=== PATIENT | male | born 1940 | race Caucasian/White ===

== ENCOUNTER 2017-11-24 22:35 | Emergency (ER) | payer OTHER ==
--- NOTE | 2017-11-24 22:53 | EDM.PDOC ---
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 This particular event was at a meeting normally functioning then sudden confusion did not know where he was did not know why he was at a meeting was confused with the group he was with developed a blank stare into space minimally responsive. 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) Social & Family History - Tobacco Use Smoking Status *Q: Former Smoker ED ROS GENERAL - Review of Systems Review Of Systems: See Below Constitutional: Reports: No Symptoms HEENT: Reports: No Symptoms Respiratory: Reports: No Symptoms Cardiovascular: Reports: No Symptoms GI/Abdominal: Reports: No Symptoms : Reports: No Symptoms Musculoskeletal: Reports: No Symptoms Skin: Reports: No Symptoms Neurological: Reports: Confusion ED EXAM, NEURO - Physical Exam Exam: See Below Text/Narrative:: General: Elderly male, GCS of 15, alert and oriented x3 HEENT: head is atraumatic normocephalic, eyes pupils equal round reactive to light, sclera clear no conjunctivitis appreciated extraocular eye movements intact. Ears tympanic membranes clear and hernandez landmarks and light reflex are present bilaterally canals are clear. Nose no septal deviation, nares are clear, no blood present. Mouth mucosa is moist and pink no erythema or exudate noted in soft palate, tongue is midline uvula is midline, dentition is intact. Neck: Supple no thyromegaly no tracheal deviation. Nodes: Cervical nodes subclavicular nodes nontender no palpable lymphadenopathy noted. Lungs: clear to auscultation bilaterally with symmetrical respirations, no adventitious noise appreciated. CV: IRR rate and rhythm S1 and S2 appreciated no murmurs rubs or gallops noted. Abdomen: Soft, nontender, no palpable masses or organomegaly appreciated, no distention no guarding bowel sounds are present, . Neuro: Cranial nerves II through XII grossly intact, power is 5 x 5 on the left side however power is slightly reduced on the right side this is not a new deficit, patellar reflex, can do finger to nose with a left hand and rapid alternating movements without difficulty on the left no dysdiadochokinesis no focal neurologic deficit Skin: Warm and dry, intact Extremities: No lower extremity edema appreciated, pedal pulse is +2. Course - Vital Signs Last Recorded V/S: Last Vital Signs Temp 97.4 F 11/24/17 23:05 Pulse 84 11/24/17 23:21 Resp 11 L 11/24/17 23:21 BP 117/83 11/24/17 23:21 Pulse Ox 98 11/24/17 23:21 - Orders/Labs/Meds Orders: Active Orders 24 hr Category Date Time Status EKG Documentation Completion [RC] ASDIRECTED Care 11/24/17 22:47 Active Head wo Cont [CT] Urgent Exams 11/24/17 22:47 Taken CULTURE URINE [RM] Urgent Lab 11/25/17 00:29 Ordered UA W/MICROSCOPIC [URIN] Urgent Lab 11/24/17 23:52 Ordered EKG 12 Lead [EK] Urgent Ther 11/24/17 22:47 Ordered Labs: Laboratory Tests 11/24/17 11/24/17 11/24/17 Range/Units 22:59 22:59 22:59 WBC 6.3 (4.5-11.0) K/uL RBC 3.72 L (4.30-5.90) M/uL Hgb 12.1 (12.0-15.0) g/dL Hct 37.2 L (40.0-54.0) % MCV 100 H (80-98) fL MCH 33 H (27-31) pg MCHC 33 (32-36) % Plt Count 253 (150-400) K/uL Neut % (Auto) 65 (36-66) % Lymph % (Auto) 23 L (24-44) % [place] % (Auto) 11 H (2-6) % Eos % (Auto) 1 L (2-4) % Baso % (Auto) 0 (0-1) % ESR 40 H (0-20) mm/hr PT 33.2 H (9.5-12.0) sec INR 2.97 H (0.80-1.20) Sodium 138 L (140-148) mmol/L Potassium 3.9 (3.6-5.2) mmol/L Chloride 103 (100-108) mmol/L Carbon Dioxide 25 (21-32) mmol/L Anion Gap 13.9 (5.0-14.0) mmol/L BUN 16 (7-18) mg/dL Creatinine 1.1 (0.8-1.3) mg/dL Est Cr Clr Drug Dosing 63.31 mL/min Estimated GFR (MDRD) > 60 (>60) Glucose 108 H (74-106) mg/dL Calcium 9.3 (8.5-10.1) mg/dL Total Bilirubin 0.6 (0.2-1.0) mg/dL AST 18 (15-37) U/L ALT 21 (12-78) U/L Alkaline Phosphatase 64 (46-116) U/L Total Protein 7.4 (6.4-8.2) g/dL Albumin 3.6 (3.4-5.0) g/dL Globulin 3.8 H (2.3-3.5) g/dL Albumin/Globulin Ratio 1.0 L (1.2-2.2) Urine Color Urine Appearance Urine pH (4.5-8.0) Ur Specific Avis (1.008-1.030) Urine Protein (NEGATIVE) mg/dL Urine Glucose (UA) (NEGATIVE) mg/dL Urine Ketones (NEGATIVE) mg/dL Urine Occult Blood (NEGATIVE) Urine Nitrite (NEGAITVE) Urine Bilirubin (NEGATIVE) Urine Urobilinogen (NORMAL) mg/dL Ur Leukocyte Esterase (NEGATIVE) Urine RBC (0-5) Urine WBC (0-5) Ur Epithelial Cells Amorphous Sediment Urine Bacteria Urine Mucus 11/24/17 Range/Units 23:52 WBC (4.5-11.0) K/uL RBC (4.30-5.90) M/uL Hgb (12.0-15.0) g/dL Hct (40.0-54.0) % MCV (80-98) fL MCH (27-31) pg MCHC (32-36) % Plt Count (150-400) K/uL Neut % (Auto) (36-66) % Lymph % (Auto) (24-44) % [place] % (Auto) (2-6) % Eos % (Auto) (2-4) % Baso % (Auto) (0-1) % ESR (0-20) mm/hr PT (9.5-12.0) sec INR (0.80-1.20) Sodium (140-148) mmol/L Potassium (3.6-5.2) mmol/L Chloride (100-108) mmol/L Carbon Dioxide (21-32) mmol/L Anion Gap (5.0-14.0) mmol/L BUN (7-18) mg/dL Creatinine (0.8-1.3) mg/dL Est Cr Clr Drug Dosing mL/min Estimated GFR (MDRD) (>60) Glucose (74-106) mg/dL Calcium (8.5-10.1) mg/dL Total Bilirubin (0.2-1.0) mg/dL AST (15-37) U/L ALT (12-78) U/L Alkaline Phosphatase (46-116) U/L Total Protein (6.4-8.2) g/dL Albumin (3.4-5.0) g/dL Globulin (2.3-3.5) g/dL Albumin/Globulin Ratio (1.2-2.2) Urine Color Yellow Urine Appearance Cloudy Urine pH 5.0 (4.5-8.0) Ur Specific Avis 1.025 (1.008-1.030) Urine Protein 30 H (NEGATIVE) mg/dL Urine Glucose (UA) Normal (NEGATIVE) mg/dL Urine Ketones Negative (NEGATIVE) mg/dL Urine Occult Blood Large (NEGATIVE) Urine Nitrite Negative (NEGAITVE) Urine Bilirubin Small (NEGATIVE) Urine Urobilinogen Normal (NORMAL) mg/dL Ur Leukocyte Esterase Large (NEGATIVE) Urine RBC >100 H (0-5) Urine WBC 50-75 H (0-5) Ur Epithelial Cells Few Amorphous Sediment Not seen Urine Bacteria Many Urine Mucus Not seen Departure - Departure Time of Disposition: 00:35 Disposition: Home, Self-Care 01 Condition: Good Clinical Impression: Transient global amnesia - Discharge Information Referrals: PCP,None [Primary Care Provider] - Forms: ED Department Discharge Additional Instructions: Please call upon return home and a prescription will then be sent to your pharmacy [facility], Please followup with your primary care provider in 3-5 days if not better, please call return to the emergency department with worsening of symptoms. - My Orders Last 24 Hours: My Active Orders 11/24/17 22:47 EKG Documentation Completion [RC] ASDIRECTED Head wo Cont [CT] Urgent EKG 12 Lead [EK] Urgent 11/24/17 23:52 UA W/MICROSCOPIC [URIN] Urgent 11/25/17 00:29 CULTURE URINE [RM] Urgent - Assessment/Plan Last 24 Hours: My Active Orders 11/24/17 22:47 EKG Documentation Completion [RC] ASDIRECTED Head wo Cont [CT] Urgent EKG 12 Lead [EK] Urgent 11/24/17 23:52 UA W/MICROSCOPIC [URIN] Urgent 11/25/17 00:29 CULTURE URINE [RM] Urgent Plan: Assessment Acuity = acute Site and laterality = probable transient global amnesia Etiology = unclear etiology Manifestations = none Location of injury = Home Lab values = CBC unremarkable, INR therapeutic at 2.97 sedimentation rate elevated at 40 of uncertain significance, CMP unremarkable urinalysis reveals greater than 100 rbc's consistent hematuria and 50-75 WBCs consistent pyuria Plan Had a provided on transient global amnesia because he recently completed the course of antibiotics for urinary tract infection and he is still having symptoms of frequency and dysuria I will call in a prescription for a different antibiotic, family will call me upon return home and tell me what antibiotic he recently completed, recommend follow-up primary care 3-5 days for reevaluation This note was dictated using [employer] voice recognition software please call with any questions on syntax or grammar.
== END 2017-11-25 00:53 | disposition home or self-care (01) ==
LOC: JP.ED 22:35
DX: G45.4 Transient global amnesia (principal); Z87.891 Personal history of nicotine dependence; Z86.73 Personal history of transient ischemic attack (TIA), and cerebral infarction without residual deficits
CPT/HCPCS: 36415; 70450; 80053; 81001; 85025; 85610; 85651; 87086; 93005; 93010; 99285-25

== ENCOUNTER 2018-02-04 03:27 | Emergency (ER) | payer OTHER ==
[2018-02-04] MEDS ORDERED: Ketorolac 30 MG/ML SDV IM ONE (04:16)
--- NOTE | 2018-02-04 04:22 | EDM.PDOC ---
ED HPI GENERAL MEDICAL PROBLEM - General Chief Complaint: General Stated Complaint: MEDICAL VIA [facility] Time Seen by Provider: 02/04/18 04:05 Source of Information: Reports: Patient, Family, Old Records, RN History Limitations: Reports: Other (incomplete records, [facility] patient. Poor historian.) - History of Present Illness INITIAL COMMENTS - FREE TEXT/NARRATIVE: 77 yo male presents via EMS with low back pain exacerbation. Pain was 8/10 before bed and daily. Is on no daily pain meds. Got to 10/10 when he went to the bathroom tonight so called 911. No new injury. Has had multiple low back surgeries. Is followed by the NH at the [place] and [place] sites. No fever. Pain is worse with movement. In the past he has not gotten relief with acetaminophen, has not tolerated all narcotic/prescription type pain meds, and has gotten good relief from naproxen when he takes it episodically, did not take any tonight. Has an appt at the NH later today. Onset: Sudden (pain got worse tonight.), Unknown/Unsure Duration: Chronic Location: Reports: Back (low) Quality: Reports: Ache Severity: Severe Improves with: Reports: Rest Worsens with: Reports: Movement Context: Reports: Other (chronic low back pain) Associated Symptoms: Reports: No Other Symptoms Treatments HEALTH CARE FACILITY ADMINISTRATOR: Reports: Other (see below) (none) Lower Back Pain Score (Numeric/FACES): 10 - Related Data Allergies Allergy/AdvReac Type Severity Reaction Status Date / Time morphine Allergy Hallucinati Verified 02/04/18 03:55 ons Home Meds: Home Meds Cephalexin [Keflex] 500 mg PO TID #20 capsule 02/04/18 [Rx] Losartan [Cozaar] 25 mg PO BEDTIME 02/04/18 [History] Metoprolol Tartrate 1 tab PO DAILY 02/04/18 [History] Warfarin [Coumadin] 1 tab PO ASDIRECTED 02/04/18 [History] Warfarin [Coumadin] 7.5 mg PO ASDIRECTED 02/04/18 [History] Past Medical History HEENT History: Reports: Hard of Hearing, Impaired Vision, Other (See Below) Other HEENT History: deviated septum Cardiovascular History: Reports: Afib, Hypertension Genitourinary History: Reports: Pyelonephritis, Renal Calculus, UTI, Recurrent Musculoskeletal History: Reports: Back Pain, Chronic, Fracture Neurological History: Reports: CVA Psychiatric History: Reports: Addiction Other Psychiatric History: alcohol addiction Hematologic History: Reports: Anticoagulation Therapy Dermatologic History: Reports: Psoriasis - Infectious Disease History Infectious Disease History: Reports: Chicken Pox, Measles, Mumps - Past Surgical History Neurological Surgical History: Reports: Lumbar Spine, Spinal Fusion Musculoskeletal Surgical History: Reports: Hip Replacement Social & Family History - Tobacco Use Smoking Status *Q: Never Smoker - Caffeine Use Caffeine Use: Reports: None - Recreational Drug Use Recreational Drug Use: No ED ROS GENERAL - Review of Systems Review Of Systems: See Below Constitutional: Reports: No Symptoms HEENT: Reports: No Symptoms Respiratory: Reports: No Symptoms Cardiovascular: Reports: No Symptoms GI/Abdominal: Reports: No Symptoms : Reports: No Symptoms Musculoskeletal: Reports: Back Pain Skin: Reports: No Symptoms Neurological: Reports: No Symptoms Psychiatric: Reports: No Symptoms ED EXAM, GENERAL - Physical Exam Exam: See Below Exam Limited By: No Limitations General Appearance: Alert, WD/WN, No Apparent Distress (is talkative and smiling on the ER cart while stating his pain is 10/10.) Eye Exam: Bilateral Eye: Normal Inspection Ears: Normal External Exam, Normal Canal, Hearing Loss Ear Exam: Bilateral Ear: Auricle Normal, Canal Normal Nose: Normal Inspection, Normal Mucosa, No Blood Throat/Mouth: Normal Inspection, Normal Lips, Normal Oropharynx, Normal Voice, No Airway Compromise Head: Atraumatic, Normocephalic Neck: Normal Inspection Respiratory/Chest: No Respiratory Distress, Lungs Clear, Normal Breath Sounds, No Accessory Muscle Use Cardiovascular: Regular Rate, Rhythm GI/Abdominal: Normal Bowel Sounds, Soft, Non-Tender, No Distention Back Exam: Decreased Range of Motion, Other (old surgical scars present.). No: CVA Tenderness (R), CVA Tenderness (L) Extremities: Normal Inspection, Normal Range of Motion, Non-Tender, No Pedal Edema Neurological: Alert, Oriented, CN II-XII Intact, Normal Cognition, No Motor/ Sensory Deficits Psychiatric: Normal Affect, Normal Mood Skin Exam: Warm, Dry, Intact, Normal Color, No Rash Course - Vital Signs Text/Narrative:: Was able to walk in the ER with the aid of a walker after Toradol. Has both a cane and a walker at home. Last Recorded V/S: Last Vital Signs Temp 35.9 C 02/04/18 03:41 Pulse 90 02/04/18 04:05 Resp 16 02/04/18 03:41 BP 138/94 H 02/04/18 04:05 Pulse Ox 98 02/04/18 03:41 - Orders/Labs/Meds Orders: Active Orders 24 hr Category Date Time Status Bladder Scan [RC] ASDIRECTED Care 02/04/18 04:07 Active CULTURE URINE [RM] Stat Lab 02/04/18 05:07 Ordered UA W/MICROSCOPIC [URIN] Stat Lab 02/04/18 04:05 Ordered Labs: Laboratory Tests 02/04/18 Range/Units 04:05 Urine Color Yellow Urine Appearance Slightly cloudy Urine pH 7.0 (4.5-8.0) Ur Specific [place] 1.015 (1.008-1.030) Urine Protein 30 H (NEGATIVE) mg/dL Urine Glucose (UA) Normal (NEGATIVE) mg/dL Urine Ketones Negative (NEGATIVE) mg/dL Urine Occult Blood Moderate (NEGATIVE) Urine Nitrite Negative (NEGAITVE) Urine Bilirubin Negative (NEGATIVE) Urine Urobilinogen Normal (NORMAL) mg/dL Ur Leukocyte Esterase Moderate (NEGATIVE) Urine RBC 10-20 H (0-5) Urine WBC 20-30 H (0-5) Ur Epithelial Cells Not seen Amorphous Sediment Few Urine Bacteria Rare Urine Mucus Not seen Meds: Medications Discontinued Medications Generic Name Dose Route Start Last Admin Trade Name Freq PRN Reason Stop Dose Admin Cephalexin 500 mg 02/04/18 05:08 Keflex PO 02/04/18 05:09 ONETIME ONE Ketorolac Tromethamine 30 mg 02/04/18 04:16 02/04/18 04:25 Toradol IM 02/04/18 04:17 30 mg ONETIME ONE Administration Departure - Departure Time of Disposition: 05:14 Disposition: Home, Self-Care 01 Condition: Fair Clinical Impression: Acute exacerbation of chronic low back pain, Cystitis - Discharge Information *PRESCRIPTION DRUG MONITORING PROGRAM REVIEWED*: No *COPY OF PRESCRIPTION DRUG MONITORING REPORT IN PATIENT [place]: No Prescriptions: Cephalexin [Keflex] 500 mg PO TID #20 capsule Instructions: What You Need to Know About Chronic Back Pain Referrals: PCP,None [Primary Care Provider] - Forms: ED Department Discharge Additional Instructions: Keep your appt at the NH for later today. After 10 am today you may take a dose of naproxen with food if needed for pain relief. Take cephalexin every 8 hrs until gone. You urine culture will be available after no more than 72 hrs. Use your walker for assistance if you feel your balance is off. - My Orders Last 24 Hours: My Active Orders 02/04/18 04:05 UA W/MICROSCOPIC [URIN] Stat 02/04/18 04:07 Bladder Scan [RC] ASDIRECTED 02/04/18 05:07 CULTURE URINE [RM] Stat - Assessment/Plan Last 24 Hours: My Active Orders 02/04/18 04:05 UA W/MICROSCOPIC [URIN] Stat 02/04/18 04:07 Bladder Scan [RC] ASDIRECTED 02/04/18 05:07 CULTURE URINE [RM] Stat
[2018-02-04] MEDS ORDERED: Cephalexin 250 MG Cap PO ONE (05:08)
== END 2018-02-04 05:28 | disposition home or self-care (01) ==
LOC: JP.ED 03:27
DX: N30.90 Cystitis, unspecified without hematuria (principal); M54.5 Low back pain; G89.29 Other chronic pain; Z88.5 Allergy status to narcotic agent; Z79.01 Long term (current) use of anticoagulants; I10 Essential (primary) hypertension
CPT/HCPCS: 51798; 81001; 87086; 96372; 99284; A9270; J1885